=== PATIENT | male | born 1950 | race Caucasian/White ===

== ENCOUNTER → 2017-01-20 | Outpatient (CLI) | payer MEDICARE ==
--- NOTE | 2017-01-20 17:08 | CONS ---
DATE OF CONSULTATION: This 61-year-old male patient who was diagnosed having obstructive sleep apnea, more than 15 years ago. He was under the care of Dr. Erickson. His last CPAP titration was done in March 2014 during which the patient was titrated to a CPAP pressure of 8 cm of water. Currently he is having difficulties with his CPAP machine. His CPAP is not delivering the appropriate pressure and at times shutting off for no reason and his treatment has been essentially unsuccessful. As such, he is developing increased sleepiness and currently snoring loud and stopping breathing and feeling tired during the day. He is going to bed around 11:00 p.m., waking up at 7:00 a.m. in the morning. He is coming in and request for us to update his CPAP machine knowing that his current CPAP machine is at least 10 years old and is not working appropriately. Otherwise he has no other new complaints. He has no recent weight gain and his weight has been stable for the past 3 years at least. No new medical problems or comorbidities. He states that his CPAP sleep apnea treatment was successful up until recently. His current Welch score is 6. PAST MEDICAL HISTORY: 1. Obstructive sleep apnea, maintained on CPAP pressure of 8 cm of water. 2. Severe period limb movements. 3. Obesity. 4. Hypertension. 5. Hyperlipidemia. 6. Chronic back pain. 7. Neuropathy. PAST SURGICAL HISTORY: None. DRUG ALLERGIES: LISINOPRIL, ATENOLOL AND LIPITOR. SOCIAL HISTORY: The patient is a nonsmoker. No history of alcohol. No history of IV drugs. FAMILY HISTORY: Negative for sleep apnea. Positive for lung cancer in his father. REVIEW OF SYSTEMS: Twelve-point review of systems was done, and all of the positive findings were all mentioned above in the history of present illness. BP is 151/79, pulse 59, respirations 16, temperature 98.2, saturation 97% on room air. Neck size 18 inches 35.8. Welch score is 6. Weight is 243. Height is 69 inches. GENERAL APPEARANCE: Calm, comfortable. HEENT: Short neck, crowding of the posterior pharynx. There is no goiter, neck masses. LUNGS: Clear to auscultation. HEART: Sounds are regular rate and rhythm. Normal S1, S2. No murmurs. ABDOMEN: Soft, nontender. No organomegaly. EXTREMITIES: No edema, cyanosis, or clubbing. IMPRESSION: 1. Obstructive sleep apnea. The patient was under good control with a CPAP pressure at 8 cm of water yet his machine is old and it is not working properly. 2. Hypersomnia secondary to above. 3. Obesity. Stable weight. BMI is at 35.8. 4. Hypertension. 5. Hyperlipidemia. 6. Chronic back pain. 7. Neuropathy. PLAN: We will order a new CPAP machine for him. The patient has had this machine for around 10 years and it is time to update his machine and give him a new unit. I do not see the need for undergoing a CPAP titration. Based on his last titration from April 05, 2014, he was titrated to a CPAP pressure of 8 cm of water. This should be quite enough at this point. We will order a new CPAP machine ( ) pressure of 8 with a C-Flex of 3. Continue nasal pillows. His CPAP equipment will be renewed and he will be asked to implement good sleep hygiene measures and continue efforts to lose weight. He will see me back in 30 to 90 days for a compliancy check after obtaining his newer CPAP unit. Will continue to follow.
== END | disposition home or self-care (01) ==
LOC: SLEEP 13:24
PROVIDERS: ATTEND Internal Medicine Critical Care Medicine
DX: G47.33 Obstructive sleep apnea (adult) (pediatric) (principal); G47.10 Hypersomnia, unspecified; E66.9 Obesity, unspecified; I10 Essential (primary) hypertension; E78.5 Hyperlipidemia, unspecified; G89.29 Other chronic pain; M54.9 Dorsalgia, unspecified; G62.9 Polyneuropathy, unspecified; Z68.35 Body mass index [BMI] 35.0-35.9, adult
CPT/HCPCS: 99211

== ENCOUNTER → 2017-04-21 | Outpatient (CLI) | payer MEDICARE ==
--- NOTE | 2017-04-21 21:30 | PN ---
PROGRESS NOTE This is a 66-year-old male patient coming to see me in followup regarding his CPAP treatment response and compliance. Note that the patient was given a CPAP machine, and the pressure was based on his previous settings. The patient had an older CPAP unit which was not working properly. I gave him a new CPAP machine order, which he was able to obtain, and the pressure setting is the same. On today's evaluation, the patient is using his CPAP every night. He is responding to the treatment. His main complaint is some residual snoring while on treatment. He is using a Simplus full-face mask. His compliancy data over the past 30 days show excellent use, with an average of 8.3 hours of CPAP use per night, and his CPAP use for more than 4 hours is 100% of the time. Leak factor is 19 L/minute and his AHI while on treatment is down to 1.7. He requests the pressure to be elevated, based on his some reports of snoring while on CPAP; this has been noted by his . PHYSICAL EXAMINATION: BP 154/75, pulse 50, respiration 16, temperature 97.6. Weight is 246. Saturation 98% on room air. GENERAL APPEARANCE: Calm, comfortable. HEENT: Short neck. Crowding of the posterior pharynx. There is no goiter or neck mass. LUNGS: Diminished. Otherwise clear. Heart sounds are regular rate and rhythm. Normal S1, S2. No S3. No S4. No murmurs. Abdomen is soft, nontender. No organomegaly. EXTREMITIES: No edema. No cyanosis or clubbing. IMPRESSION: 1. Obstructive sleep apnea, currently on CPAP pressure of 8 cm of water, with excellent clinical response and compliance. 2. Snoring while on CPAP. 3. Obesity. 4. Hypertension. 5. Hyperlipidemia. 6. Peripheral neuropathy. 7. Chronic back pain. PLAN: Treatment is successful. Will increase the pressure to 9 cm of water, based on his reported snoring, and hopefully this will eliminate the snoring completely. He will see me back in a year's time, earlier if needed. MILLIE / VELASQUEZN: [id number] /
== END ==
LOC: SLEEP 13:49
PROVIDERS: ATTEND Internal Medicine Critical Care Medicine
DX: G47.33 Obstructive sleep apnea (adult) (pediatric) (principal); E66.9 Obesity, unspecified; I10 Essential (primary) hypertension; E78.5 Hyperlipidemia, unspecified; G62.9 Polyneuropathy, unspecified; M54.9 Dorsalgia, unspecified; G89.29 Other chronic pain

== ENCOUNTER → 2020-04-17 | Outpatient (CLI) | payer MEDICARE ==
--- NOTE | 2020-04-17 22:38 | SLS ---
SLEEP STUDY This patient is a 69-year-old male patient with known history of obstructive sleep apnea diagnosed many years back. He has been utilizing the same CPAP machine, which is a [employer] Mobile Elite; this machine was offered to him back in 2013. He is at a pressure of 9 cm of water. On today's evaluation, he is coming in for a compliancy check. He has been utilizing his machine every night without any interruption. He is averaging more than 6 hours of CPAP use per night. Leak is on the order of 44 L/minute, as the patient is using Nuance Pro nasal pillows and he at times is losing some pressure through his mouth, having oral leaks. Nevertheless, despite the leak his AHI is less than 1, indicating successful treatment. He has no complaints. No hypersomnia or sleepiness. He is interested in obtaining a new CPAP unit. The patient is going to move to [place] within the next year or so. No swallowing of air. No gastric distention. No abdominal distention. No chest pain. No shortness of breath. No nocturnal heartburn. No restlessness in the lower extremities. REVIEW OF SYSTEMS: Fourteen-point review of systems was done. Positive findings are all mentioned above in the history of present illness. PHYSICAL EXAMINATION: BP is 148/83, pulse 88, respirations 16, temperature 98.3, saturation 98% on room air. Height is 5 feet 8 inches, weight is 225.8. [place] score zero. Neck size 17 inches. BMI 34.2. GENERAL APPEARANCE: Calm, comfortable. HEAD: Atraumatic, normocephalic. NECK: Supple. No JVD. No goiter or neck masses. LUNGS: Clear to auscultation. HEART: Heart sounds are regular rate and rhythm. Normal S1, S2. No S3, S4. No murmurs. ABDOMEN: Soft, nontender. No organomegaly. EXTREMITIES: No edema. No cyanosis or clubbing. NEUROLOGIC: Awake and alert. There is no focal neurological deficit. PSYCHIATRIC: Negative for anxiety or depression. IMPRESSION: 1. Obstructive sleep apnea, currently on CPAP pressure of 9 cm of water. 2. Hypersomnia, recovered. 3. Periodic limb movement activity, currently inactive and stable. 4. Hypertension. 5. Chronic neck pain. 6. Chronic back pain. 7. Peripheral neuropathy. PLAN: 1. Continue CPAP therapy at the same level of pressure. 2. Proceed with ordering a new CPAP machine. The patient is interested in updating his CPAP machine. It has been 5 years since he obtained his last CPAP machine. We will order a new CPAP machine for him and he will see me back in 30 to 90 days for a compliancy check. Keep the same pressure setting. Keep the same mask interface. Will continue to follow. MILLIE / JENIFER: [id number] /
== END | disposition home or self-care (01) ==
LOC: SLEEP 13:06
PROVIDERS: ATTEND Internal Medicine Critical Care Medicine
DX: G47.33 Obstructive sleep apnea (adult) (pediatric) (principal); Z99.89 Dependence on other enabling machines and devices; G47.61 Periodic limb movement disorder; I10 Essential (primary) hypertension; G89.29 Other chronic pain; M54.2 Cervicalgia; M54.5 Low back pain; G62.9 Polyneuropathy, unspecified

== ENCOUNTER → 2021-09-24 | Outpatient (CLI) | payer MEDICARE ==
--- NOTE | 2021-09-24 14:15 | P.PN ---
Subjective Progress Note Date: 09/24/21 this is a 70-year-old male patient was coming to see me for any we'll check regarding his obstructive sleep apnea. His last evaluation and sleep center was back in [id number],[phone]. The patient is very well-known to me. The patient is noted was a. The patient continues to use a CPAP machine and the patient has been updated to a ResMed CPAP unit, Airsense 10. I checked his machine. The patient is currently set at a pressure maximum use of water with C-Flex of 3. He continues to use his machine overnight. His beta laurie first alert during the day. He continues to benefit from the treatment and he has no major hypersomnia and sleepiness or fatigue or tiredness. Based on his 30 day compliancy, the patient utilizes machine 29 out of 30 days and easily achieved more than 4 hours 80% of the time. The average use of the CPAP is around 6.3 hours per night and the leak is 30 L per minute and his AHI is down to 2.8indicating successful treatment. The patient is using a Nuance pro small size nasal pillows. He is averaging a good 6 hours of sleep at least. He is waking up refreshed and alert during the day. No nighttime nightmares pain no shortness of breath or chest pain or heartburn overnight. No leg kicks. No nightmares. No significant pain issues. No sleep interruption Review of system a 14 point review of system was done and the positive findings were mentioned in history of present illness. Note that the patient has lost weight in order of 25 pounds over this past 1 year. No morning headaches. No cough or sputum production. No seizure activity. No substance abuse. No over utilization of any caffeinated beverages. No alcoholism. No major tiredness or fatigue during the day. No other complaints other than the things mentioned above in history of present illness. Objective - Exam the blood pressure is 163/82 with a pulse of 64 and respiration of 16. Temperature is 97.6F. Saturation 96% on room air oxygen. Height is 59. Weight is 207 pounds and the BMI 36.5. The patient's Jackson score is down to 8. The patient appeared well nourished and normally developed. Vital signs as documented. Head exam is unremarkable. No scleral icterus or corneal arcus noted. Neck is without jugular venous distension, thyromegaly, or carotid bruits. Carotid upstrokes are brisk bilaterally. Lungs are clear to auscultation and percussion. Cardiac exam reveals the PMI to be normally sized and situated. Rhythm is regular. First and second heart sounds normal. No murmurs, rubs or gallops. Abdominal exam reveals normal bowel sounds, no masses, no organomegaly and no aortic enlargement. Extremities are nonedematous and both femoral and pedal pulses are normal. Examination of the skin revealed no evidence of significant rashes, suspicious appearing nevi or other concerning lesions. Neurologically, the patient is awake and alert and the patient does not have any focal neurological deficit. Cranial nerves are essentially intact. Assessment and Plan Plan: 1 obstructive sleep apnea, successfully treated. The patient continues to receive CPAP therapy at a pressure of 9 cm of water the treatment is been essentially successful and the patient has no complaints and no symptoms of tiredness and fatigue and sleepiness on today's evaluation. Compliance check with them 2 hypersomnia recovered 3 hypertension 4 peripheral neuropathy 5 chronic neck and back pain 6 history of periodic limb movement activity which is currently inactive in stable 7 hyperlipidemia Plan Continue lisinopril for blood pressure control continue Neurontin for neuropathy Continue CPAP therapy at a pressure of 9 cm of water Refilled the CPAP supplies including filter masks and nasal pillows and the patient is using in the [employer] pro-nasal pillow small size Encourage further weight loss Treatment is successful and see me back in a year time in follow-up.
== END | disposition home or self-care (01) ==
LOC: SLEEP 12:58
PROVIDERS: ATTEND Internal Medicine Critical Care Medicine
DX: Z53.9 Procedure and treatment not carried out, unspecified reason (principal)